=== PATIENT | male | born 1950 | race Caucasian/White ===

== ENCOUNTER 2016-11-20 00:37 | Observation (INO) | payer OTHER, SELFPAY ==
[~2016-11-20] VITALS: Ht 177.8 cm; Wt 80.1 kg
[2016-11-20 01:11] LABS: BASO % 0.3 % (0.2-1.2); EOS # 0.2 10_X3_uL (0.0-0.5); EOS % 3.5 % (0.8-7.0); GRAN # 3.5 10_X3_uL (1.8-5.4); GRAN % 59.7 % (34.0-67.9); HEMATOCRIT 40.2 % (40-51); HEMOGLOBIN 13.5 g/dL (13.7-17.5); LYMPH # 1.6 10_X3_uL (1.3-3.6); LYMPH % 27.7 % (21.8-53.1); MEAN CORPUSCULAR HEMOGLOBIN 29.4 pg (27.0-33.0); MEAN CORPUSCULAR HGB CONC 33.6 g/dL (32.0-36.0); MEAN CORPUSCULAR VOLUME 87.6 fL (79-92); MEAN PLATELET VOLUME 9.6 fl (7.5-11.5); MONO # 0.5 10_X3_uL (0.3-0.8); MONO % 8.8 % (5.3-12.2); PLATELET COUNT 156 x10_3/uL (163-337); RED BLOOD COUNT 4.59 x10_6/uL (4.6-6.1); RED CELL DISTRIBUTION WIDTH 13.8 % (11.6-14.4); WHITE BLOOD COUNT 5.8 x10_3/uL (4.2-9.1)
[2016-11-20 01:24] LABS: ALKALINE PHOSPHATASE 95 U/L (50-136); ALT/SGPT 14 U/L (7.53-40.17); AST/SGOT 17 U/L (6.66-35.34); BILIRUBIN,TOTAL 0.55 mg/dL (0.0-1.0); BLOOD UREA NITROGEN 15 mg/dL (7-18); CALCIUM 8.3 mg/dL (8.7-10.7); CARBON DIOXIDE 23 mmol/L (21-32); CREATINE KINASE 94 U/L (35-232); CREATININE 1.1 mg/dL (0.6-1.3); GLUCOSE,RANDOM 116 mg/dL (70-99); POTASSIUM 4.1 mmol/L (3.5-5.1); SODIUM 141 mmol/L (136-145); TOTAL PROTEIN 6.7 gm/dL (6.4-8.2)
[2016-11-20 07:11] LABS: BASO % 0.4 % (0.2-1.2); EOS # 0.1 10_X3_uL (0.0-0.5); EOS % 2.4 % (0.8-7.0); HEMATOCRIT 37.7 % (40-51); HEMOGLOBIN 12.2 g/dL (13.7-17.5); LYMPH # 1.1 10_X3_uL (1.3-3.6); MEAN CORPUSCULAR HEMOGLOBIN 28.5 pg (27.0-33.0); MEAN CORPUSCULAR HGB CONC 32.4 g/dL (32.0-36.0); MEAN CORPUSCULAR VOLUME 88.1 fL (79-92); MEAN PLATELET VOLUME 9.6 fl (7.5-11.5); MONO # 0.4 10_X3_uL (0.3-0.8); MONO % 9.2 % (5.3-12.2); PLATELET COUNT 161 x10_3/uL (163-337); RED BLOOD COUNT 4.28 x10_6/uL (4.6-6.1); RED CELL DISTRIBUTION WIDTH 13.7 % (11.6-14.4); WHITE BLOOD COUNT 4.7 x10_3/uL (4.2-9.1)
[2016-11-20 07:27] LABS: CKMB 1.2 ng/ml (0.0-5.0)
[2016-11-20 07:29] LABS: TROP-I < 0.30 NG/ML (0.00-0.30)
[2016-11-20 07:33] LABS: INR 1.1 (0.9-1.1); PARTIAL THROMBOPLASTIN TIME 24.5 SECONDS (21.3-29.3); PROTHROMBIN TIME (PATIENT) 11.4 SECONDS (9.9-11.1)
[2016-11-20 13:42] LABS: CKMB 1.3 ng/ml (0.0-5.0)
[2016-11-20 13:49] LABS: TROP-I < 0.30 NG/ML (0.00-0.30)
[2016-11-20 17:20] LABS: CKMB 1.2 ng/ml (0.0-5.0)
[2016-11-20 17:21] LABS: TROP-I < 0.30 NG/ML (0.00-0.30)
== END 2016-11-20 17:53 | disposition home or self-care (01) ==
LOC: ER 00:37 → MS 01:59
PROVIDERS: Emergency Medicine; ADMIT Family Medicine
DX: R07.89 Other chest pain (principal); I10 Essential (primary) hypertension; E78.5 Hyperlipidemia, unspecified; N40.0 Benign prostatic hyperplasia without lower urinary tract symptoms; K21.9 Gastro-esophageal reflux disease without esophagitis; E03.9 Hypothyroidism, unspecified; I25.10 Atherosclerotic heart disease of native coronary artery without angina pectoris; M54.9 Dorsalgia, unspecified; Z95.5 Presence of coronary angioplasty implant and graft; Z83.3 Family history of diabetes mellitus; Z79.02 Long term (current) use of antithrombotics/antiplatelets; Z79.899 Other long term (current) drug therapy
CPT/HCPCS: 36415; 71010; 80053; 80061; 82550; 82553; 85025; 85610; 85730; 93005; 96360; 96361; 99070; 99284; 99285-25; G0378